=== PATIENT | female | born 1960 | race African-American/Black ===

== ENCOUNTER 2016-12-18 11:01 | Emergency (ER) | payer OTHER ==
[2016-12-18 11:06] VITALS: BP 137/80
--- NOTE | 2016-12-18 12:38 | PROVIDER DOCUMENTATION ---
HPI-Rash/Wound/ReCheck - General Chief Complaint: Wound Recheck Stated Complaint: CYST ON CHEST Time Seen by Provider: 12/18/16 12:19 Source: patient Allergies/Adverse Reactions: Allergies Allergy/AdvReac Type Severity Reaction Status Date / Time No Known Allergies Allergy Verified 03/19/15 16:51 Home Medications: Home Medication List Medication Instructions Recorded Confirmed Last Taken Type Lisinopril/Hydrochlorothiazide 1 each PO DAILY 12/22/13 06/14/16 06/14/16 07:00 History [Lisinopril-Hctz 10-12.5 mg Tab] 1 EACH Metformin E.r. [Glucophage Xr] 1,000 mg PO BID CC 12/22/13 06/14/16 06/14/16 07: 00 History 1000 MG Omeprazole [Prilosec] 20 mg PO DAILY@0700 12/22/13 06/14/16 06/14/16 07:00 History 20 MG Paroxetine [Paxil] 20 mg PO DAILY 12/22/13 06/14/16 06/14/16 07:00 History 20 MG SIMVAstatin [Zocor] 40 mg PO QHS 12/22/13 06/14/16 06/13/16 21:00 History 40 MG Adalimumab [Humira Pen] 1 dose INJ DIRECTED 06/14/16 06/14/16 06/14/16 07:00 History 1 DOSE Famotidine [Pepcid] 20 mg PO BID #30 tablet 06/14/16 Unknown Rx Loratadine [Claritin] 10 mg PO DAILY #14 tablet 06/14/16 Unknown Rx - History of Present Illness-Dermatology Nature of Presenting Problem: 56 y/o BF presents to ED for wound recheck. Pt states was seen at [facility] yesterday and had a "cyst removal" by Dr. Ya who told her to f/u for wound recheck on Tuesday. Pt states she is here today because she wasn't sure if he had gotten all of it and wanted a second look at the area to make sure that the bleeding wasn't abnormal. States some bleeding to the area since yesterday. Review of Systems - Adult - REVIEW OF SYSTEMS - ADULT Constitutional: reports: no symptoms reported. denies: chills, fever Eyes: reports: no symptoms reported. denies: blurred vision, double vision Ears, Nose, Mouth & Throat: reports: no symptoms reported. denies: ear pain, nose pain Cardiovascular: reports: no symptoms reported. denies: chest pain, palpitations Respiratory: reports: no symptoms reported. denies: dyspnea on exertion, shortness of breath Gastrointestinal: reports: no symptoms reported. denies: abdominal pain, nausea , vomiting Genitourinary: reports: no symptoms reported. denies: dysuria, frequency Musculoskeletal: reports: no symptoms reported. denies: joint pain, joint swelling Integumentary: reports: see HPI, skin sores/ulcer. denies: nail changes, rash Neurological: reports: no symptoms reported. denies: numbness, paresthesia Psychiatric: reports: no symptoms reported Endocrine: reports: no symptoms reported. denies: cold intolerance, heat intolerance Hematologic/Lymphatic: reports: no symptoms reported. denies: easy bruising, prolonged bleeding Allergic/Immunologic: reports: no symptoms reported All Other Systems: Reviewed and Negative Past History - Adult - PAST MEDICAL HISTORY-ADULT Review of Records: reports: Nursing Assessment Review, Medications Reviewed Major Childhood Illnesses: reports: denies history Musculoskeletal: reports: arthritis Psychiatric: reports: anxiety Endocrine/Immune: reports: Diabetes - PRIOR SURGERIES/PROCEDURES Surgical/Procedure History: reports: back/neck, other (cyst removal) - IMMUNIZATION STATUS Childhood Immunizations: See Nurse Assessment Flu Vaccine: See Nurse Assessment - SOCIAL HISTORY Smoking: denies Physical Exam-General - PHYSICAL EXAM-ADULT Initial Vital Signs Reviewed: Yes - CONSTITUTIONAL General Appearance: appears well, alert, no apparent distress - EYES Eyes: pink conjunctivae - HEAD, EARS, NOSE, MOUTH & THROAT HENMT: normocephalic/atraumatic, moist mucous membranes - NECK Neck: normal inspection - RESPIRATORY Respiratory: no respiratory distress - LYMPHATIC Lymphatic: no adenopathy. negative: axilla node tender - MUSCULOSKELETAL Back Exam: normal inspection Extremity: normal gait - SKIN Integumentary: normal color, normal turgor, warm/dry, other (1.5 cm open wound that is packed with iodoform gauze in sternal region of chest. No active drainage, no redness, or evidence of infection to the area.) - NEUROLOGIC Neurologic: negative: aphasia - PSYCHIATRIC Psych/Mental Status: normal mood/affect, normal thought content, normal thought process, oriented x 3 Progress - PLAN OF CARE/RESULTS Progress/Plan/Lab Results: Discussed wound care and dressing changes with pt, including appropriate f/u with Dr. Ya tomorrow for recheck of wound. Departure - Departure Time of Disposition Order: 12:36 DIAGNOSIS: Encounter for wound re-check, Abscess Disposition: HOME 01 Certified Medical Emergency: Emergent Condition: Stable Additional Instructions: Continue taking medications as directed. Change dressing, as needed, if drainage/bleeding persists. Follow up with Dr. Ya tomorrow, as scheduled, for recheck. ED Follow Up Instructions: You have been treated by a care provider in the Emergency Department. These instructions are being provided to you so you can have an understanding of how to care for yourself upon discharge. Upon discharge from the Emergency Department, you are responsible for making arrangements for follow-up care by a physician of your choice. Take all prescribed medications as directed. Return to the Emergency Department immediately for any new or worsening symptoms. You may call the Physician Referral phone number at [phone] to obtain a list of Physicians who are taking new patients. Referrals: Karthik Ya MD [Primary Care Provider] - Attestation - Physician/ REBEKAH Attestation Patient care was provided by Advanced Practice Provider:: Yes Advanced Practice Provider:: Lucy Bergeron Advanced Practice Provider documentation review:: The Mid-level provider documentation, treatment plan and medical decision making was reviewed by the physician who agrees with all treatment and medical decision making by the MLP.
== END 2016-12-18 13:00 | disposition home or self-care (01) ==
LOC: ED 11:01
DX: L02.213 Cutaneous abscess of chest wall (principal); L98.9 Disorder of the skin and subcutaneous tissue, unspecified; M19.90 Unspecified osteoarthritis, unspecified site; E11.9 Type 2 diabetes mellitus without complications; F41.9 Anxiety disorder, unspecified; Z79.899 Other long term (current) drug therapy; Z98.890 Other specified postprocedural states